=== PATIENT | female | born 1940 | race Caucasian/White ===

== ENCOUNTER 2020-04-15 01:20 | Outpatient (CLI) | payer MEDICARE, SELFPAY ==
[2020-04-15 19:35] LABS: SARS-CoV-2 RNA PCR Negative
== END 2020-04-15 01:21 | disposition home or self-care (01) ==
LOC: ANHCOVIDDT 01:20
PROVIDERS: PCP Family Medicine; Visit Provider Internal Medicine Gastroenterology
DX: Z01.812 Encounter for preprocedural laboratory examination (principal); Z11.59 Encounter for screening for other viral diseases
CPT/HCPCS: 87635; C9803; U0003

== ENCOUNTER 2020-04-17 01:34 | Day surgery (SDC) | payer MEDICARE, SELFPAY ==
[2020-04-10 10:05] VITALS: BMI 25.0
[2020-04-17 08:10] VITALS: BP 136/62; PULSE 75; RESP 18; TEMP 36.7; O2SAT 100; BMI 24.5
[2020-04-17 08:41] LABS: Prothrombin Time 12.9 Seconds (11.1-14.7)
--- NOTE | 2020-04-17 08:41 | PM.IMHP ---
H&P: HPI History of Present Illness Date/Time: 04/17/20 08:41 Chief complaint: Dysphagia,Neoplasm Screening Narrative: Reason for visit EGD and colonoscopy. This very pleasant lady sitting consultation request the primary. Impression: GERD with history dysphagia. Will evaluate for underlying Ring or stricture. Screening and surveillance colonoscopy. The patient has a history adenomatous colon polyps and diverticulosis coli. History: Very pleasant lady has dysphasia last 6 months. He does have a history underlying reflux disease well controlled on famotidine b.i.d.. She is here for EGD. Patient also has a history adenomatous colon polyps and diverticulosis coli. She is here for screening and surveillance colonoscopy. GI review systems otherwise unremarkable. Physical examination: General: very pleasant patient in no acute distress. HEENT: Head was normocephalic sclerae is clear mouth without masses neck was supple. Heart: Rate rhythm regular without S3 or S4. Lungs: CTA. Abdomen: Soft with no guarding or rigidity. Bowel sounds were active. Neurologic: Cranial nerves 2 through 12 intact. No focal defects. No clonus. Musculoskeletal system: Revealed no joint tenderness or swelling no muscle atrophy. Extremities: Reveal no significant edema. Skin: Warm and dry with normal turgor. Mental status: intact. Patient is alert and oriented. Review of Systems Review of Systems: All systems reviewed & are unremarkable except as noted in HPI and below PMFSH Past Medical History Medical History (Updated 04/17/20 @ 08:41 by Rupert Blanco DO) Adenomatous colon polyp Anxiety Atrial fibrillation and flutter Diverticula, colon DVT (deep venous thrombosis) GERD (gastroesophageal reflux disease) Pulmonary emboli TIA (transient ischemic attack) Vitamin D deficiency Surgical History Surgical History (Updated 04/17/20 @ 08:39 by Rupert Blanco DO) H/O colonoscopy History of knee replacement Social History Social History Smoking status: Never smoker Second hand tobacco smoke exposure: No Alcohol intake: never Substance use: never Substance use type: does not use Gender identity (if verbalized by the patient): Female Meds Home Medications and Allergies Home Medications Medication Instructions Recorded Confirmed Type tolterodine 4 mg capsule,extended 4 mg PO QAM 07/25/19 04/10/20 History release 24 hr ergocalciferol (vitamin D2) 1,250 50,000 unit PO 2XW cap 04/07/20 04/10/20 History mcg (50,000 unit) capsule cyclosporine [Restasis] 1 drp OPHTHALMIC (EYE) BID 04/10/20 04/10/20 History nifedipine 60 mg PO QAM 04/10/20 04/10/20 History paroxetine HCl 20 mg PO QAM 04/10/20 04/10/20 History warfarin [Coumadin] 2.5 mg PO QAM 04/10/20 04/17/20 History famotidine 40 mg tablet 40 mg PO BID #180 tablet 04/11/20 Rx Allergies Allergy/AdvReac Type Severity Reaction Status Date / Time No Known Allergies Allergy Verified 04/17/20 08:21 Vital Signs Vital Signs - 24 hr 04/17/20 08:10 Temperature 36.7 C Pulse Rate 75 Respiratory Rate 18 Blood Pressure 136/62 Pulse Oximetry 100
[2020-04-17 08:42] LABS: Partial Thromboplastin Time 24.8 SECONDS (22.3-36.8)
[2020-04-17] MEDS: LACTATED RINGERS 1,000 ML 150 ML IV CONT (08:51)
--- NOTE | 2020-04-17 09:15 | WPDANESEPPF ---
Anes - Initial Pre Proc Eval Procedure: Operation Date: 04/17/20 09:00 Proposed Procedures p Esophagogastroduodenoscopy&Screen Colon - Rupert Blanco DO Date/Time: 04/17/20 09:15 Surgeon: Rupert Blanco DO Pre Op Diagnosis: Dysphagia,Neoplasm Screening Patient Data Age: 79 Gender: F Height: 5 ft 3 in Weight: 62.7 kg Last Vital Signs Temp 98.1 F 04/17/20 08:10 Pulse 75 04/17/20 08:10 Resp 18 04/17/20 08:10 BP 136/62 04/17/20 08:10 Pulse Ox 100 04/17/20 08:10 Allergies Allergy/AdvReac Type Severity Reaction Status Date / Time No Known Allergies Allergy Verified 04/17/20 08:21 Home Medications Medication Instructions Recorded Confirmed Type tolterodine 4 mg capsule,extended 4 mg PO QAM 07/25/19 04/10/20 History release 24 hr ergocalciferol (vitamin D2) 1,250 50,000 unit PO 2XW cap 04/07/20 04/10/20 History mcg (50,000 unit) capsule cyclosporine [Restasis] 1 drp OPHTHALMIC (EYE) BID 04/10/20 04/10/20 History nifedipine 60 mg PO QAM 04/10/20 04/10/20 History paroxetine HCl 20 mg PO QAM 04/10/20 04/10/20 History warfarin [Coumadin] 2.5 mg PO QAM 04/10/20 04/17/20 History famotidine 40 mg tablet 40 mg PO BID #180 tablet 04/11/20 Rx Laboratory Tests 04/17/20 08:23 PT 12.9 Seconds Seconds (11.1-14.7) INR 1.0 APTT 24.8 SECONDS SECONDS (22.3-36.8) Patient hx anesthesia problems: none Family hx anesthesia problems: none PMFSH Past Medical History Medical History (Updated 04/17/20 @ 08:41 by Rupert Blanco DO) Adenomatous colon polyp Anxiety Atrial fibrillation and flutter Diverticula, colon DVT (deep venous thrombosis) GERD (gastroesophageal reflux disease) Pulmonary emboli TIA (transient ischemic attack) Vitamin D deficiency Surgical History Surgical History (Updated 04/17/20 @ 08:39 by Rupert T. Klucka, DO) H/O colonoscopy History of knee replacement Social History Social History Smoking status: Never smoker Second hand tobacco smoke exposure: No Alcohol intake: never Substance use: never Substance use type: does not use Gender identity (if verbalized by the patient): Female Anes - Eval Final PreProcedure Day of Procedure 04/17/20 09:15 Patient weight: normal Heart: regular rate and rhythm Lungs: clear to auscultation Airway: Mallampati scale class II Neurological: alert and oriented Last oral intake: >/= 8 hours ASA classification: III Emergent: no Anesthetic plan: proceed Anesthesia type and monitoring: general GIVS Informed Consent: The patient's anesthetic plan and its attendant risks and benefits were discussed with the patient/family/POA. Questions were solicited and answers provided to the satisfaction of the patient/family/POA.
[2020-04-17 10:08] VITALS: BP 114/62; PULSE 67; RESP 20; O2SAT 99
[2020-04-17 10:18] VITALS: BP 118/67; PULSE 66; RESP 20; O2SAT 100
[2020-04-17 10:28] VITALS: BP 120/55; PULSE 67; RESP 22; O2SAT 100
--- NOTE | 2020-04-17 10:56 | SUR.PHASEII ---
[address] AND [address] DR. SOSA THAT PATIENT CAN RESTART COUMADIN TODAY. INFORMED PATIENT AND HER THAT SHE CAN RESTART COUMADIN TODAY. NIKITA PRICE. 1055 REVIEWED DISCHARGE INSTRUCTIONS, INCLUDING FUTHUR TESTING AND PROCEDURES ORDERED BY DR. SOSA. NIKITA PRICE
== END 2020-04-17 10:58 | disposition home or self-care (01) ==
PROVIDERS: PCP Family Medicine; Visit Provider Internal Medicine Gastroenterology
PROC: 0DJ08ZZ Inspection of Upper Intestinal Tract, Via Natural or Artificial Opening Endoscopic (ICD-10-PCS; CPT 43235; principal; 2020-04-17 09:00)
DX: Z12.11 Encounter for screening for malignant neoplasm of colon (principal); K57.30 Diverticulosis of large intestine without perforation or abscess without bleeding; K64.8 Other hemorrhoids; Z86.010 Personal history of colon polyps; K21.0 Gastro-esophageal reflux disease with esophagitis; R13.10 Dysphagia, unspecified; K44.9 Diaphragmatic hernia without obstruction or gangrene; K31.7 Polyp of stomach and duodenum; I48.91 Unspecified atrial fibrillation; I48.92 Unspecified atrial flutter; E55.9 Vitamin D deficiency, unspecified; F41.9 Anxiety disorder, unspecified; Z79.01 Long term (current) use of anticoagulants; Z86.73 Personal history of transient ischemic attack (TIA), and cerebral infarction without residual deficits; Z86.718 Personal history of other venous thrombosis and embolism
CPT/HCPCS: 43239; G0105; 36415; 85610; 85730; 87081; 88305; J2001; J2704; J7120

== ENCOUNTER 2020-06-04 06:46 | Outpatient (CLI) | payer MEDICARE, SELFPAY ==
--- NOTE | ~2020-06-04 | CT_ITS ---
EXAMINATION: CT chest abdomen pelvis w con DATE: 06/04/2020 09:03 CDT INDICATION: Shortness of breath. Abdomen pain. TECHNIQUE: Computed tomography (CT) of the chest, abdomen, and pelvis was performed with 100 cc Omnip aque 350 intravenous contrast. The dose-length product was 427.39 mGy-cm. Automated exposure control and iterative reconstruction technique were employed. COMPARISON: None FINDINGS: CHEST CT: There is a large hiatal hernia with gastric volvulus pattern. No definite obstruction. No thoracic ly mphadenopathy. No significant pleural or pericardial effusion. Heart size is normal. There is linear scarring/atelectasis right upper lobe. There is dependent atelectasis. No focal consolidation. No pne umothorax. No suspicious pulmonary nodules or masses. ABDOMEN/PELVIS CT: The liver, pancreas, adrenal glands are unremarkable. There are calcified granulomas of the spleen. T here is bilateral areas of focal cortical thinning of the kidneys. No hydronephrosis or mass identifi ed. There is atherosclerosis of the aorta without aneurysm. Nonobstructive bowel gas pattern. Colonic diverticulosis. Normal appendix. No lymphadenopathy. No free air or free fluid. Gallbladder is prese nt. There is mild thoracic and lumbar spondylosis. No acute osseous abnormality. Mild scoliosis. IMPRESSION: 1. Large hiatal hernia with gastric volvulus. No obstruction. Reviewed, dictated and finalized at location A.
--- NOTE | ~2020-06-04 | XR_ITS ---
EXAMINATION: XR UGIAC w barium swallow DATE: 06/04/2020 08:22 INDICATION: Diaphragmatic hernia with obstruction without gangrene. TECHNIQUE: The patient drank thick barium, gas-producing crystals, and thin barium. Fluoroscopy of th e esophagus, stomach, and proximal small bowel was performed. Fluoroscopy exposure time was 0.8 minut es. The total number of images was 39. COMPARISON: None. FINDINGS: There is no mass or stricture of the esophagus. Esophageal motility is normal. There is a l arge sliding hiatal hernia. The gastroesophageal junction is 8.5 cm above the diaphragm. There is a d iverticulum of the second portion of the duodenum. IMPRESSION: 1. Large sliding hiatal hernia. Reviewed, dictated and finalized at location A.
[2020-06-04 07:24] LABS: Estimated Glomerular Filt Rate > 60
== END 2020-06-04 06:47 | disposition home or self-care (01) ==
PROVIDERS: PCP Family Medicine; Visit Provider Internal Medicine Gastroenterology
DX: R06.02 Shortness of breath (principal); K44.9 Diaphragmatic hernia without obstruction or gangrene
CPT/HCPCS: 71260; 74177; 74246; Q9967

== ENCOUNTER → 2020-06-10 12:00 | Outpatient (CLI) | payer MEDICARE, SELFPAY ==
--- NOTE | ~2020-06-10 | DEXA_ITS ---
Bone Density Report Name: Esther Rodas Age: 80 Sex: Female Ethnicity: White Date of : 1940 Indication: osteopenia; height loss; postmenopausal Referring Provider: CARLINE GALARZA Study: Bone densitometry was performed. Exam Date: June 10, 2020 Accession number: [id number] Bone Density: Region BMD T-score Z-score Classification AP Spine (L1-L4) 0.980 -0.6 2.0 Normal Femoral Neck (Left) 0.720 -1.2 1.1 Osteopenia Total Hip (Left) 0.814 -1.0 0.9 Normal Femoral Neck (Right) 0.688 -1.5 0.8 Osteopenia Total Hip (Right) 0.868 -0.6 1.3 Normal Total Hip Mean 0.841 -0.8 1.1 Normal World Health Organization criteria for BMD impression classify patients as: Normal (T-score at or above -1.0), Osteopenia (T-score between -1.0 and -2.5), or Osteoporosis (T-score at or below -2.5). 10-year Fracture Risk(1): Major Osteoporotic Fracture 13% Hip Fracture 2.7% Reported Risk Factors: [place] (), Neck BMD=0.688, BMI=24.9 (1) FRAX(R) Version 3.08. Fracture probability calculated for an untreated patient. Fracture probability may be lower if the patient has received treatment. Previous Exams: Region Exam Age BMD T-score BMD Change BMD Change Date g/cm2 vs Baseline vs Previous AP Spine(L1-L4) 06/10/2020 80 0.980 -0.6 -0.001 -0.005 11/09/2017 77 0.985 -0.6 0.004 0.053* 09/29/2015 75 0.932 -1.0 -0.049* -0.002 08/21/2013 73 0.934 -1.0 -0.047* -0.008 07/14/2011 71 0.942 -1.0 -0.039* -0.005 06/26/2009 69 0.947 -0.9 -0.034* -0.034* 03/25/2006 65 0.981 -0.6 Total Hip(Left) 06/10/2020 80 0.814 -1.0 -0.130* 0.047* 11/09/2017 77 0.767 -1.4 -0.177* -0.086* 09/29/2015 75 0.853 -0.7 -0.091* 0.083* 08/21/2013 73 0.770 -1.4 -0.175* 0.004 07/14/2011 71 0.765 -1.4 -0.179* -0.134* 06/26/2009 69 0.900 -0.3 -0.045* -0.045* 03/25/2006 65 0.944 0.0 Total Hip(Right) 06/10/2020 80 0.868 -0.6 -0.075* 0.071* 11/09/2017 77 0.796 -1.2 -0.146* -0.105* 09/29/2015 75 0.901 -0.3 -0.041* 0.068* 08/21/2013 73 0.833 -0.9 -0.110* -0.019 07/14/2011 71 0.852 -0.7 -0.091* -0.103* 06/26/2009 69 0.955 0.1 0.013 0.013 03/25/2006 65 0.943 0.0 *Denotes significance at 95% confidenc
== END ==
PROVIDERS: PCP Family Medicine; Visit Provider Obstetrics & Gynecology Gynecology
DX: Z78.0 Asymptomatic menopausal state (principal); M85.852 Other specified disorders of bone density and structure, left thigh; M85.851 Other specified disorders of bone density and structure, right thigh
CPT/HCPCS: 77080

== ENCOUNTER → 2020-08-04 13:18 | Outpatient (CLI) | payer MEDICARE, SELFPAY ==
--- NOTE | ~2020-08-04 | MM_ITS ---
EXAMINATION: MM screening kemar BI w nhan HISTORY: Screening mammogram TECHNIQUE: Craniocaudal and mediolateral oblique 3-D tomosynthesis images were obtained and synthetic 2-D images were generated. CAD analysis was submitted and interpreted. COMPARISON: 02/01/2019, 11/09/2017, 10/06/2016 bilateral digital screening mammogram examinations BREAST PARENCHYMAL COMPOSITION: The breasts are almost entirely fatty. FINDINGS: There is no evidence of suspicious mass, calcification, or architectural distortion to sugg est malignancy in either breast. There has been no suspicious interval change. IMPRESSION: 1. No mammographic evidence of malignancy. 2. Recommend routine screening mammography in one year. BI-RADS Category 1: Negative Reviewed, dictated and finalized at location A. SCORER
== END ==
PROVIDERS: PCP Family Medicine; Visit Provider Obstetrics & Gynecology Gynecology
DX: Z12.31 Encounter for screening mammogram for malignant neoplasm of breast (principal)
CPT/HCPCS: 77063; 77067

== ENCOUNTER → 2021-05-20 01:34 | Outpatient (CLI) | payer MEDICARE, SELFPAY ==
[2021-05-20 20:24] LABS: SARS-CoV-2 RNA PCR Positive
== END ==
PROVIDERS: PCP Family Medicine; Visit Provider Family Medicine
DX: U07.1 COVID-19 (principal); R43.2 Parageusia
CPT/HCPCS: C9803; U0003; U0005

== ENCOUNTER → 2021-09-18 15:17 | Outpatient (CLI) | payer MEDICARE, SELFPAY ==
--- NOTE | ~2021-09-18 | MM_ITS ---
EXAMINATION: MM screening kemar BI w nhan HISTORY: Screening TECHNIQUE: Craniocaudal and mediolateral oblique 3-D tomosynthesis images were obtained and synthetic 2-D images were generated. CAD analysis was submitted and interpreted. COMPARISON: Comparison to multiple prior studies sequentially, with oldest reviewed study dated 09/29. BREAST PARENCHYMAL COMPOSITION: There are scattered areas of fibroglandular density. FINDINGS: There is no evidence of suspicious mass, calcification, or architectural distortion to sugg est malignancy in either breast. There has been no suspicious interval change. IMPRESSION: 1. No mammographic evidence of malignancy. 2. Recommend routine screening mammography in one year. BI-RADS Category 1: Negative Reviewed, dictated and finalized at location A. PHONE AD TAKER
== END ==
PROVIDERS: Visit Provider Obstetrics & Gynecology Gynecology
DX: Z12.31 Encounter for screening mammogram for malignant neoplasm of breast (principal)
CPT/HCPCS: 77063; 77067

== ENCOUNTER → 2022-11-09 13:18 | Outpatient (CLI) | payer MEDICARE, SELFPAY ==
--- NOTE | ~2022-11-09 | MM_ITS ---
EXAMINATION: MM screening kemar BI w nhan HISTORY: Screening mammogram TECHNIQUE: Craniocaudal and mediolateral oblique 3-D tomosynthesis images were obtained and synthetic 2-D images were generated. CAD analysis was submitted and interpreted. COMPARISON: 09/18/2021, 08/04/2020, 02/01/2019 bilateral screening mammogram examinations BREAST PARENCHYMAL COMPOSITION: There are scattered areas of fibroglandular density... FINDINGS: There is no evidence of suspicious mass, calcification, or architectural distortion to sugg est malignancy in either breast. There has been no suspicious interval change. IMPRESSION: 1. No mammographic evidence of malignancy. 2. Recommend routine screening mammography in one year. BI-RADS Category 1: Negative Reviewed, dictated and finalized at location A. CHARGE CARD CLERK
== END ==
PROVIDERS: PCP Family Medicine; Visit Provider Obstetrics & Gynecology Gynecology
DX: Z12.31 Encounter for screening mammogram for malignant neoplasm of breast (principal)
CPT/HCPCS: 77063; 77067

== ENCOUNTER → 2022-11-12 12:23 | Outpatient (CLI) | payer MEDICARE, SELFPAY ==
--- NOTE | ~2022-11-12 | DEXA_ITS ---
Bone Density Report Name: KIARA RAGSDALE Age: 82 Sex: Female Ethnicity: White Date of : 1940 Indication: postmenopausal; screening for osteoporosis; height loss; Referring Provider: CARLINE GALARZA Study: Bone densitometry was performed. Exam Date: November 12, 2022 Accession number: [id number] Bone Density: Region BMD T-score Z-score Classification AP Spine (L1-L4) 0.975 -0.7 2.1 Normal Femoral Neck (Left) 0.695 -1.4 0.9 Osteopenia Total Hip (Left) 0.795 -1.2 0.9 Osteopenia Femoral Neck (Right) 0.660 -1.7 0.6 Osteopenia Total Hip (Right) 0.861 -0.7 1.4 Normal Total Hip Mean 0.828 -1.0 1.2 Normal World Health Organization criteria for BMD impression classify patients as: Normal (T-score at or above -1.0), Osteopenia (T-score between -1.0 and -2.5), or Osteoporosis (T-score at or below -2.5). 10-year Fracture Risk(1): Major Osteoporotic Fracture 14% Hip Fracture 3.6% Reported Risk Factors: [place] (), Neck BMD=0.660, BMI=24.4 (1) FRAX(R) Version 3.08. Fracture probability calculated for an untreated patient. Fracture probability may be lower if the patient has received treatment. Previous Exams: Region Exam Age BMD T-score BMD Change BMD Change Date g/cm2 vs Baseline vs Previous AP Spine(L1-L4) 11/12/2022 82 0.975 -0.7 -0.005 -0.004 06/10/2020 80 0.980 -0.6 -0.001 -0.005 11/09/2017 77 0.985 -0.6 0.004 0.053* 09/29/2015 75 0.932 -1.0 -0.049* -0.002 08/21/2013 73 0.934 -1.0 -0.047* -0.008 07/14/2011 71 0.942 -1.0 -0.039* -0.005 06/26/2009 69 0.947 -0.9 -0.034* -0.034* 03/25/2006 65 0.981 -0.6 Total Hip(Left) 11/12/2022 82 0.795 -1.2 -0.149* -0.019 06/10/2020 80 0.814 -1.0 -0.130* 0.047* 11/09/2017 77 0.767 -1.4 -0.177* -0.086* 09/29/2015 75 0.853 -0.7 -0.091* 0.083* 08/21/2013 73 0.770 -1.4 -0.175* 0.004 07/14/2011 71 0.765 -1.4 -0.179* -0.134* 06/26/2009 69 0.900 -0.3 -0.045* -0.045* 03/25/2006 65 0.944 0.0 Total Hip(Right) 11/12/2022 82 0.861 -0.7 -0.081* -0.006 06/10/2020 80 0.868 -0.6 -0.075* 0.071* 11/09/2017 77 0.796 -1.2 -0.146* -0.105* 09/29/2015 75 0.901 -0.3 -0.041* 0.068* 08/21/2013 73 0.833 -0.9 -0.110* -0.019 07/14/2011 71 0.852 -0.7 -0.091* -0.103* 06/26/2009
== END ==
PROVIDERS: PCP Family Medicine; Visit Provider Obstetrics & Gynecology Gynecology
DX: Z78.0 Asymptomatic menopausal state (principal); M85.89 Other specified disorders of bone density and structure, multiple sites
CPT/HCPCS: 77080

== ENCOUNTER 2023-01-27 15:31 | Outpatient (CLI) | payer MEDICARE, SELFPAY ==
--- NOTE | ~2023-01-27 | XR_ITS ---
EXAMINATION: XR abdomen obstructive series DATE: 01/27/2023 15:59 INDICATION: Constipation TECHNIQUE: Supine and upright views of the abdomen. FINDINGS: No prior studies for comparison. The visualized lung parenchyma is normal.. There is a nonobstructive bowel gas pattern. Gas and stool are seen throughout the colon to the level of the rectum. There is no free air. Moderate colonic fe viry loading. IMPRESSION: 1. No acute abdominal abnormality. Reviewed, dictated and finalized at location L.
== END 2023-01-27 15:32 | disposition home or self-care (01) ==
LOC: ANHIMG 15:33
PROVIDERS: PCP Family Medicine; Visit Provider Family Medicine
DX: K59.00 Constipation, unspecified (principal)
CPT/HCPCS: 74019

== ENCOUNTER 2023-06-30 12:54 | Emergency (ER) | payer MEDICARE, SELFPAY ==
[2023-06-30 13:13] VITALS: BP 129/67; PULSE 91; RESP 16; TEMP 37.3; O2SAT 98
--- NOTE | 2023-06-30 13:36 | ED.GENADULT ---
HPI - General Adult General Chief complaint: Extremity Problem,Nontraumatic Stated complaint: Body pain Time Seen by Provider: 06/30/23 13:19 Source: patient, family () and RN notes reviewed Mode of arrival: ambulatory Limitations: no limitations History of Present Illness HPI narrative: Patient presents today complaining of right-sided neck pain and right knee pain times 3-4 days. She is also reporting all over body pain the last couple of days. Denies injury or trauma. She has tried no medication for symptoms prior to arrival. She has been walking with a walker for due to her knee pain she has an appointment with her orthopedist in 4 days for her knee. Related Data Home Medications Medication Instructions Recorded Confirmed tolterodine 4 mg capsule,extended 4 mg PO QAM 07/25/19 06/30/23 release 24 hr acetaminophen 500 mg tablet 500 mg PO Q4H PRN Pain (Scale 08/27/20 06/30/23 Score 4-6) calcium pantothenate 500 mg tablet 500 mg PO BID 08/27/20 06/30/23 cyclosporine 0.05 % eye drops 1 drp ophthalmic (eye) Q12H 08/27/20 06/30/23 (Restasis MultiDose) ergocalciferol (vitamin D2) 1,250 50,000 unit PO .2X Monthly 08/31/21 06/30/23 mcg (50,000 unit) capsule donepezil 5 mg tablet 5 mg PO HS 06/30/23 06/30/23 Allergies Allergy/AdvReac Type Severity Reaction Status Date / Time No Known Allergies Allergy Verified 06/30/23 13:08 Review of Systems Review of Systems: CONSTITUTIONAL: Denies fever, chills, or sweats.+ body aches EYES: Denies visual changes, redness, or discharge. ENT: Denies rhinorrhea, congestion, sore throat, or otalgia. CARDIOVASCULAR: Denies chest pain, palpitations, or edema. RESPIRATORY: Denies cough or dyspnea. GASTROINTESTINAL: Denies abdominal pain, nausea, vomiting, or diarrhea. GENITOURINARY: Denies dysuria or hematuria. SKIN: Denies rash, itching, or wounds. MUSCULOSKELETAL: Denies back pain. + right knee pain, right neck pain NEUROLOGIC: Denies headache, numbness, tingling, or weakness. PSYCH: Denies depression or anxiety. [facility] Past Medical History Medical History Adenomatous colon polyp Anxiety Diverticula, colon DVT (deep venous thrombosis) GERD (gastroesophageal reflux disease) Heart murmur Pulmonary emboli TIA (transient ischemic attack) Vitamin D deficiency Surgical History Surgical History H/O colonoscopy History of knee replacement Family History Family History Father Diabetes mellitus Hypertension Family history of cardiovascular disease Family history of coronary artery disease Mother Hypertension Family history of arthritis Family history of Alzheimer's disease Social History Social History Smoking status: Never smoker Second hand tobacco smoke exposure: No Alcohol intake: never Substance use: never Substance use type: does not use Lack of Transportation: No Lack of Food: Never True Current Housing: I Have Housing Concerned About Future Housing: No Difficulty Paying Gas/Electric Bills: No Difficulty Paying for Meds: No Currently Unemployed: No Education: Bachelor's Degree Difficulty w/ Childcare or Family Care: No Living arrangements: with family Occupation/Education: retired Gender identity (if verbalized by the patient): Female Comments At time of signature, I have reviewed and agree with nursing past medical, surgical, social and family history unless otherwise noted. Please see nursing chart for further information. There is no relevant family history pertinent to the presenting complaint Exam Narrative: GENERAL: Well-appearing, well-nourished, and in no acute distress. HEAD: Normocephalic, atraumatic. EYES: EOMI. No redness or drainage. Conjunctiva
--- NOTE | 2023-06-30 15:29 | PC.NURSE ---
1510 Patient has been unable to provide urine specimen despite drinking 3 cups of water and sitting on the toilet for 15 minutes x2. Provider spoke to patient and her and they will be discharged.
== END 2023-06-30 15:17 | disposition home or self-care (01) ==
PROVIDERS: Emergency Provider Nurse Practitioner; PCP Family Medicine
DX: R52 Pain, unspecified (principal); S16.1XXA Strain of muscle, fascia and tendon at neck level, initial encounter; X58.XXXA Exposure to other specified factors, initial encounter; M25.561 Pain in right knee; K21.9 Gastro-esophageal reflux disease without esophagitis; R01.1 Cardiac murmur, unspecified; E55.9 Vitamin D deficiency, unspecified; Z86.718 Personal history of other venous thrombosis and embolism; Z86.711 Personal history of pulmonary embolism; Z86.73 Personal history of transient ischemic attack (TIA), and cerebral infarction without residual deficits
CPT/HCPCS: 99212; G0463

== ENCOUNTER 2023-07-18 17:02 | Inpatient (IN) | payer MEDICARE, SELFPAY ==
[2023-07-18] VITALS (12 sets, daily range): BP systolic 133–148; BP diastolic 61–67; PULSE 78–90; RESP 14–23; TEMP 36.6; O2SAT 95–97
--- NOTE | ~2023-07-18 | CT_ITS ---
EXAMINATION: CT brain wo con DATE: 07/18/2023 17:32 INDICATION: fall on Xarelto . TECHNIQUE: Computed tomography (CT) of the head was performed without intravenous contrast. The mA wa s adjusted according to patient size. Iterative reconstruction technique was employed. The dose-lengt h product was 605.33 mGy-cm. COMPARISON: 04/01/2013. FINDINGS: No acute intracranial hemorrhage or extra-axial fluid collection. No hydrocephalus, mass, or herniation. No acute ischemic infarct. Unremarkable dural venous sinus attenuation. No acute osseous abnormality. The aerated spaces are clear. Moderate atrophy and chronic white matter change. Atherosclerotic intracranial calcification. Bilater al lens replacements. Old bilateral basal ganglia lacunar infarcts. Encephalomalacia in the left diomedes etal-occipital region, left insula and left posterior frontal lobe. IMPRESSION: No acute intracranial process. Reviewed, dictated and finalized at location K. [employer]
--- NOTE | ~2023-07-18 | XR_ITS ---
EXAM: XR hip LT 2V w AP pelvis DATE: 07/18/2023 17:36 HISTORY: fall, pain at proximal Lt femur . COMPARISON: None available. FINDINGS: Decreased mineralization. Degenerative changes in the lumbar spine. Acute appearing, moder ately displaced fractures of the superior and inferior left pubic rami, at their junctions with the p ubic bone, with likely fracture extension into the pubic bone on the left. No other fracture identifi ed. No dislocation. IMPRESSION: Moderately displaced fractures of the left obturator ring, with extension into the left p ubic bone. Reviewed, dictated and finalized at location K. N[facility] INTERN IMPRESSION: Moderately displaced fractures of the left obturator ring, with ext ension into the left pubic bone.
--- NOTE | 2023-07-18 18:22 | ED.FALL ---
HPI - Fall General Chief Complaint: Fall Stated Complaint: FALL Time Seen by Provider: 07/18/23 17:05 Source: patient Mode of arrival: EMS Limitations: no limitations History of Present Illness HPI Narrative: This is an 83 year old who states she was backing up from one room to another and she lost her balance and fell. No loss of consciousness but she is on Xarelto. She denies hitting her head of having neck pain. Complaint is pain at her left hip. No paresthesias. Pain 4 or 5 out of 10 in severity. Denies alcohol today. Denies syncope. Related Data Home Medications Medication Instructions Recorded Confirmed acetaminophen 500 mg tablet 500 mg PO Q4H PRN Pain (Scale 08/27/20 07/19/23 Score 4-6) ergocalciferol (vitamin D2) 1,250 50,000 unit PO .2X Monthly 08/31/21 07/19/23 mcg (50,000 unit) capsule nifedipine 60 mg tablet,extended 60 mg PO DAILY 07/19/23 07/19/23 release paroxetine HCl 20 mg tablet 20 mg PO DAILY 07/19/23 07/19/23 pravastatin 20 mg tablet 20 mg PO DAILY 07/19/23 07/19/23 rivaroxaban 20 mg tablet (Xarelto) 20 mg PO HS 07/19/23 07/19/23 rivastigmine 9.5 mg/24 hour 9.5 mg transdermal DAILY 07/19/23 07/19/23 transdermal patch vibegron 75 mg tablet (Gemtesa) 75 mg PO DAILY 07/19/23 07/19/23 Allergies Allergy/AdvReac Type Severity Reaction Status Date / Time No Known Allergies Allergy Verified 07/19/23 03:04 [facility] Past Medical History Medical History Adenomatous colon polyp Anxiety Diverticula, colon DVT (deep venous thrombosis) GERD (gastroesophageal reflux disease) Heart murmur Pulmonary emboli TIA (transient ischemic attack) Vitamin D deficiency Surgical History Surgical History H/O colonoscopy History of knee replacement Family History Family History Father Diabetes mellitus Hypertension Family history of cardiovascular disease Family history of coronary artery disease Mother Hypertension Family history of arthritis Family history of Alzheimer's disease Social History Social History Smoking status: Never smoker Second hand tobacco smoke exposure: No Alcohol intake: never Substance use: never Substance use type: does not use Lack of Transportation: No Lack of Food: Never True Current Housing: I Have Housing Concerned About Future Housing: No Difficulty Paying Gas/Electric Bills: No Difficulty Paying for Meds: No Currently Unemployed: No Education: Bachelor's Degree Difficulty w/ Childcare or Family Care: No Living arrangements: with family Occupation/Education: retired Gender identity (if verbalized by the patient): Female Spiritual care concerns: No Exam Const: General: healthy appearing, no acute distress and alert; No confusion, diaphoretic or ill appearing Nutritional Appearance: well nourished Orientation/consciousness: patient oriented x3 Limitations: no limitations HENMT: Head: normal to inspection, no contusions, no hematomas and no lacerations Ears: external ears normal Face and sinus: normal facial exam Neck: Neck: normal visual inspection Other: No TTP of cervical spine which are midline and without bony step offs Chest: Chest palpation & inspection: normal inspection of the chest Resp: Effort & Inspection: normal respiratory effort, not labored, no retractions, not tachypneic and no use of accessory muscles Cardio: Rate: regular rate, not bradycardic and not tachycardic GI: Inspection: non-distended Other: soft, nontender; no guarding Back/Spine/Pelvis: Cervical Spine: No collar present Skin: General skin exam: normal color and no jaundice Wounds: no wounds Neuro: General: patient oriented x3 Speech: normal speech Other: Sensation intact to tgross touc
[2023-07-18] MEDS: MORPHINE SULFATE (*CRX) 4 MG/ML INJ IV PUSH (18:30)
[2023-07-18 18:45] LABS: Basophils Absolute Auto 0.1 K/mm3 (0.0-0.1); Basophils Percent Auto 0.5 % (0.2-1.2); Eosinophils Absolute Auto 0.1 K/mm3 (0-0.3); Eosinophils Percent Auto 0.8 % (0-4.4); Hematocrit 37.1 % (37.0-47.0); Hemoglobin 12.1 g/dL (12.0-15.0); Immature Granulocyte Absolute 0.11 K/mm3 (0.00-0.031); Immature Granulocyte Percent A 1.1 % (0-0.5); Lymphocytes Absolute Auto 0.88 K/mm3 (0.9-3.2); Lymphocytes Percent Auto 8.4 % (18.3-44.2); Mean Corpuscular HGB Conc 32.6 g/dl (32-36); Mean Corpuscular Hemoglobin 32.8 pg (26-34); Mean Corpuscular Volume 100.5 fl (80-100); Mean Platelet Volume 10.5 fl (7.4-10.4); Monocytes Absolute Auto 0.8 K/mm3 (0.1-0.6); Monocytes Percent Auto 7.5 % (2.6-8.5); Neutrophils Absolute Auto 8.6 K/mm3 (1.3-6.7); Neutrophils Percent Auto 81.7 % (45.5-73.1); Platelet Count Result 270 k/mm3 (150-375); Red Blood Count 3.69 M/mm3 (4.2-5.4); Red Cell Distribution Width 11.9 % (11.5-14.5); White Blood Count 10.5 K/mm3 (4.5-10.0)
[2023-07-18 18:49] LABS: Anion Gap 6 mmol/L (8-16); Blood Urea Nitrogen 22 mg/dL (7-17); Calcium 9.4 mg/dL (8.4-10.2); Carbon Dioxide 28 mmol/L (22-30); Chloride 102 mmol/L (98-107); Estimated Glomerular Filt Rate > 60; Glucose 105 mg/dL (65-110); Sodium 136 mmol/L (137-145)
[2023-07-18 18:51] LABS: INR 1.2; Prothrombin Time 15.6 Seconds (11.1-14.7)
[2023-07-18 18:53] LABS: Partial Thromboplastin Time 33.7 SECONDS (22.3-36.8)
--- NOTE | 2023-07-18 19:15 | PC.NURSE ---
Assumed care of pt. at this time. Report from DEE Negro
--- NOTE | 2023-07-18 19:38 | PM.IMHP ---
H&P: HPI History of Present Illness Date/Time: 07/18/23 19:38 Chief Complaint: Fall Narrative: This is an 83-year-old female with past medical history significant for anxiety, the ventrum boluses, GERD, pulmonary emboli, transitory ischemic attack. Patient presented to the emergency room today after sustaining a ground level mechanical fall when she tripped at her house falling over unable to bear weight on her left leg. Patient denies any loss of consciousness. Patient has been her usual state of health. In emergency room patient was found to have a hip fracture. Patient has been admitted for further evaluation management and treatment. EXAMINATION: CT brain wo con DATE: 07/18/2023 17:32 INDICATION: fall on Xarelto . TECHNIQUE: Computed tomography (CT) of the head was performed without intravenous contrast. The mA was adjusted according to patient size. Iterative reconstruction technique was employed. The dose-length product was 605.33 mGy-cm. COMPARISON: 04/01/2013. FINDINGS: No acute intracranial hemorrhage or extra-axial fluid collection. No hydrocephalus, mass, or herniation. No acute ischemic infarct. Unremarkable dural venous sinus attenuation. No acute osseous abnormality. The? aerated spaces are clear. Moderate atrophy and chronic white matter change. Atherosclerotic intracranial calcification. Bilateral lens replacements. Old bilateral basal ganglia lacunar infarcts. Encephalomalacia in the left parietal-occipital region, left insula and left posterior frontal lobe. IMPRESSION:? No acute intracranial process. EXAM:? XR hip LT 2V w AP pelvis DATE: 07/18/2023 17:36 HISTORY: fall, pain at proximal Lt femur . COMPARISON:? None available. FINDINGS:? Decreased mineralization. Degenerative changes in the lumbar spine. Acute appearing, moderately displaced fractures of the superior and inferior left pubic rami, at their junctions with the pubic bone, with likely fracture extension into the pubic bone on the left. No other fracture identified. No dislocation. IMPRESSION: Moderately displaced fractures of the left obturator ring, with extension into the left pubic bone. Review of Systems Review of Systems: Fall pain upon bearing weight on left leg unable to ambulate Constitutional: Constitutional: Denies chills, Denies fever(s), Denies malaise, Denies night sweats and Denies weakness Eyes: Eyes: Denies change in vision ENT: Denies dysphagia, Denies vertigo, Denies dizziness and Denies odynophagia Cardiovascular: Cardiovascular: Denies chest pain, Denies leg edema, Denies radiating jaw, neck or arm pain and Denies palpitations Respiratory: Respiratory: Denies cough and Denies dyspnea Gastrointestinal: Gastrointestinal: Denies abdominal pain, Denies dyspepsia, Denies heartburn, Denies diarrhea, Denies loose stools, Denies nausea and Denies vomiting Genitourinary: Genitourinary: Denies dysuria and Denies flank pain Musculoskeletal: Musculoskeletal: Reports deformity, Reports arthralgias (Left hip) and Reports limited range of motion Integumentary/Breasts: Skin/Breast: Denies rash Neurologic: Denies vertigo, Denies dizziness, Denies focal weakness and Denies Sensory deficit (Neuro) Psychiatric: Psychiatric: Reports no additional psychiatric complaints and Reports as per HPI Endocrine: Endocrine: Denies cold intolerance, Denies flushing, Denies heat intolerance, Denies polyphagia, Denies polydipsia and Denies palpitations Hematologic/Lymphatic: Hematologic/Lymphatic: Reports no additional hematologic/lymphatic complaints and Reports as per HPI Allergic/Immunologic: Allergic/Immunologic: Reports no additional allergic/immunologic complaints and Reports as per HPI PMFSH Past Medical History Medical History Adenomatous colon polyp Anxiety Diverticula, colon DVT (deep venous thrombosis) GERD (gastroesophageal refl
[2023-07-19 02:54] VITALS: BMI 25.0
--- NOTE | 2023-07-19 02:57 | ADMGEN ---
This patient, Esther Rodas, was admitted to [facility] Surg Room 331-02. Patient/family oriented to hospital policies and general routines including ID bracelet, bed and alarms, visiting hours, pain management, procedures, bathroom and other care routines, personal items, smoking policy, room service/diet, and visiting hours. Information on how to activate the Rapid Response Team has been discussed. Patient/Family are encouraged to report perceived risks to care and to ask questions if they do not understand what they are told or what they should do.
[2023-07-19] MEDS: ACETAMINOPHEN 500 MG TABLET PO (03:04)
[2023-07-19 05:35] VITALS: BP 156/69; PULSE 72; RESP 20; TEMP 35.8; O2SAT 97
[2023-07-19] MEDS: HYDROmorphone HCL INJ (*CRX) 1 MG/ML SYR IV PUSH ×2 (06:42→16:00)
--- NOTE | 2023-07-19 08:46 | PM.CNOR ---
Assessment and Plan Assessment and plan (1) Pelvic fracture: Qualifiers: Encounter type: initial encounter Fracture type: closed Laterality: left Pelvic bone location: pubis Sublocation of pubis: unspecified portion of pubis Qualified Code(s): S32.502A - Unspecified fracture of left pubis, initial encounter for closed fracture Code(s): S32.9XXA - Fracture of unspecified parts of lumbosacral spine and pelvis, initial encounter for closed fracture Status: Acute Assessment and Plan: History, exam radiographs reviewed with the patient. Radiographs of the left hip and pelvis reveal moderately displaced fractures of the left obturator ring, with extension into the left pubic bone. The fracture type and injury as well as radiographs discussed with the patient and family. Nonoperative treatment options reviewed. The patient elects for non operative treatment. Risk of nonunion, malunion or late displacement discussed. Stiffness, pain and possible dysfunction of the joint discussed. Fracture precautions and activity restrictions reviewed. The patient verbalizes understanding. PT/OT. WBAT. Walker. Fall Precautions. Okay to resume Xarelto. SCDs. Incentive Spirometry. Pain control. Ice. Dispo: SNF vs. [facility] pending medical clearance (2) Fall: Code(s): W19.XXXA - Unspecified fall, initial encounter Status: Acute (3) PAF (paroxysmal atrial fibrillation): Code(s): I48.0 - Paroxysmal atrial fibrillation Status: Acute (4) History of pulmonary embolism: Code(s): Z86.711 - Personal history of pulmonary embolism Status: Acute History of Present Illness HPI Consult date: 07/19/23 Chief complaint: L. Obturator Ring Fracture with Extension into Pub Narrative: 83-year-old female presents to the emergency room after a fall at home. Per the patient and medical records, she was backing up from to another when she lost her balance fell. She denies loss of consciousness or hitting her head. Complaining of pain in the left hip. Radiographs in the emergency room revealed moderately displaced fractures of the left obturator ring, with extension into the left pubic bone. patient was admitted for further evaluation, pain control and orthopedic consult. Patient was previously seen in the emergency room at the end of June with generalized weakness and body aches. She had difficulty providing a urine sample at that time. It does appear that she was successful several days later. Per patient, she has been in her usual state of health in the last 1 week. She denies recent weakness or feeling ill as she was earlier. Review of Systems Review of Systems: All systems reviewed & are unremarkable except as noted in HPI and below PMFSH Past Medical History Medical History (Updated 07/19/23 @ 12:53 by IDA Mendoza) Adenomatous colon polyp Anxiety Diverticula, colon DVT (deep venous thrombosis) GERD (gastroesophageal reflux disease) Heart murmur Pelvic fracture Pulmonary emboli TIA (transient ischemic attack) Vitamin D deficiency Surgical History Surgical History H/O colonoscopy History of knee replacement Family History Family History Father Diabetes mellitus Hypertension Family history of cardiovascular disease Family history of coronary artery disease Mother Hypertension Family history of arthritis Family history of Alzheimer's disease Social History Social History Smoking status: Never smoker Second hand tobacco smoke exposure: No Alcohol intake: never Substance use: never Substance use type: does not use Lack of Transportation: No Lack of Food: Never True Current Housing: I Have Housing Concerned About Future Housing: No Difficulty Paying Gas/Electric Bills: No Difficulty Payi
[2023-07-19] MEDS: NIFEdipine 30 MG TAB.ER.24 60 MG PO (10:22)
[2023-07-19] MEDS: PRAVASTATIN SODIUM 20 MG TABLET PO (10:23)
[2023-07-19] MEDS: PARoxetine 20 MG TABLET PO (10:23)
[2023-07-19] MEDS: HYDROcodone/acetaminophen (*CRX) 5-325 MG TABLET 1 TAB PO ×2 (12:55→19:32)
[2023-07-19 14:00] VITALS: BP 142/61; PULSE 68; RESP 18; TEMP 36.7; O2SAT 94
--- NOTE | 2023-07-19 15:22 | PM.IMPN ---
Progress Note: A&P Assessment and Plan (1) Closed left hip fracture: Qualifiers: Encounter type: initial encounter Qualified Code(s): S72.002A - Fracture of unspecified part of neck of left femur, initial encounter for closed fracture Code(s): S72.002A - Fracture of unspecified part of neck of left femur, initial encounter for closed fracture Status: Deleted (2) PAF (paroxysmal atrial fibrillation): Code(s): I48.0 - Paroxysmal atrial fibrillation Status: Acute (3) GERD (gastroesophageal reflux disease): Code(s): K21.9 - Gastro-esophageal reflux disease without esophagitis Status: Acute (4) Fall: Code(s): W19.XXXA - Unspecified fall, initial encounter Status: Acute Plan 83-year-old female who presented after she lost her balance and fell. No loss of consciousness. On Xarelto landed on her left hip. HCT is normal x-ray left hip showed moderately displaced fracture of left obturator ring extending into left pubic bone. Orthopedic has been consulted non operative management. Pain control with oral pain medication. PT OT to see weight-bearing as tolerated DVT prophylaxis with Xarelto Subjective Date/time seen: 07/19/23 15:22 Interval history: 83-year-old female who presented after she lost her balance and fell. No loss of consciousness. On Xarelto landed on her left hip. HCT is normal x-ray left hip showed moderately displaced fracture of left obturator ring extending into left pubic bone. Orthopedic has been consulted non operative management. Pain control with oral pain medication. PT OT to see weight-bearing as tolerated Review of Systems Review of Systems: All systems reviewed & are unremarkable except as noted in HPI and below Exam Narrative: GENERAL: The patient is well developed, not in acute distress HEENT: Nonicteric sclerae, PERRLA, EOMI. Oropharynx clear. Moist mucous membranes. Conjunctivae appear well perfused. CHEST: Chest wall is nontender. HEART: Regular rate and rhythm without murmur, rubs, or gallops LUNGS: Clear to auscultation bilaterally. no respiratory distress ABDOMEN: Soft, positive bowel sounds, non-tender, no organomegaly. SKIN: No rash, no excessive bruising, petechiae, or purpura. NEUROLOGIC: Cranial nerves II-XII intact, alert and oriented x 3, EXTREMITIES: no edema, cyanosis or clubbing left hip tenderness Objective Data Vital Signs Vital Signs: Vital Signs - 24 hr 07/18/23 19:00 07/18/23 19:01 07/18/23 19:11 Temperature Pulse Rate 88 87 88 Respiratory Rate 15 16 16 Blood Pressure 142/64 H 143/62 H Pulse Oximetry 95 Oxygen Delivery 07/18/23 19:30 07/18/23 19:46 07/18/23 20:00 Temperature Pulse Rate 84 86 90 Respiratory Rate 18 23 H 20 Blood Pressure Pulse Oximetry 97 95 95 Oxygen Delivery 07/18/23 20:01 07/18/23 20:15 07/18/23 20:30 Temperature Pulse Rate 90 86 83 Respiratory Rate 14 16 15 Blood Pressure 148/63 H Pulse Oximetry 96 97 97 Oxygen Delivery 07/18/23 20:45 07/18/23 20:46 07/18/23 21:45 Temperature 97.9 F Pulse Rate 80 81 78 Respiratory Rate 15 21 H 20 Blood Pressure 133/61 146/67 H Pulse Oximetry 97 97 96 Oxygen Delivery 07/19/23 03:08 07/19/23 05:35 Temperature 96.4 F L Pulse Rate 72 Respiratory Rate 20 Blood Pressure 156/69 H Pulse Oximetry 97 Oxygen Delivery Room Air Intake/Output Intake/Output: Intake & Output 07/17/23 07/17/23 07/18/23 07/19/23 00:59 23:59 23:59 23:59 Intake Total 0 Balance 0 Meds/Results Medications: Active Medications Generic Name Dose Route Start Last Admin Trade Name Freq PRN Reason Stop Dose Admin Acetaminophen 500 mg 07/19/23 02:22 07/19/23 03:04 Acetaminophen 500 Mg Tablet PO 500 mg Q4H PRN Administration Pain (Scale Score 4-6) Hydrocodone Bitart/Acetaminophen 1 tab 07/19/23 12:40 07/19/23 12:55 Hydrocodone/Acetaminophen (*Crx) 5-325 Mg Tablet PO 1
[2023-07-19 16:43] VITALS: O2SAT 92
[2023-07-19 20:05] VITALS: BP 146/75; PULSE 89; RESP 20; TEMP 36.1; O2SAT 96
--- NOTE | 2023-07-19 20:37 | PC.NURSE ---
This pt and had numerous questions about medications, concerns about pt's rivastigmine patch, surgery, pain medications. Provided education and suggested speaking with MD about rivastigmine. Requested family bring pt gemtesa up; it was brought up at end of shift. Medication labeled and tubed to pharmacy with home med labels. Night RN made aware. Pt declared not surgical candidate and surgery requested hospitalist to order diet. MD to floor later. Requested PO meds to attempt to treat pt pain, as well as diet order. ok'ed norco5 and said he would place order later as well as heart healthy diet. Pt worked with PT/OT with increased pain medication, crying out. Dilaudid given as per discussion with provider.
--- NOTE | 2023-07-19 20:37 | PHAR ---
PT'S HOME MED GEMTESA 75 MG (VIBEGRON) VERIFIED BY PHARMACY
[2023-07-19] MEDS: RIVAROXABAN 20 MG TABLET PO (20:41)
[2023-07-20 05:35] VITALS: BP 154/78; PULSE 82; RESP 18; TEMP 36.6; O2SAT 96
[2023-07-20 05:52] LABS: Basophils Percent Auto 0.3 % (0.2-1.2); Eosinophils Percent Auto 0.4 % (0-4.4); Hematocrit 37.9 % (37.0-47.0); Hemoglobin 12.1 g/dL (12.0-15.0); Immature Granulocyte Absolute 0.04 K/mm3 (0.00-0.031); Immature Granulocyte Percent A 0.4 % (0-0.5); Lymphocytes Absolute Auto 0.86 K/mm3 (0.9-3.2); Mean Corpuscular HGB Conc 31.9 g/dl (32-36); Mean Corpuscular Hemoglobin 32.4 pg (26-34); Mean Corpuscular Volume 101.6 fl (80-100); Mean Platelet Volume 10.4 fl (7.4-10.4); Monocytes Absolute Auto 0.9 K/mm3 (0.1-0.6); Monocytes Percent Auto 9.3 % (2.6-8.5); Neutrophils Absolute Auto 7.7 K/mm3 (1.3-6.7); Neutrophils Percent Auto 80.6 % (45.5-73.1); Platelet Count Result 229 k/mm3 (150-375); Red Blood Count 3.73 M/mm3 (4.2-5.4); Red Cell Distribution Width 11.7 % (11.5-14.5); White Blood Count 9.5 K/mm3 (4.5-10.0)
[2023-07-20 06:02] LABS: Alanine Aminotransferase 20 U/L (6-35); Alkaline Phosphatase 112 U/L (38-126); Anion Gap 6 mmol/L (8-16); Aspartate Amino Transferase 25 U/L (14-36); Bilirubin,Total 0.6 mg/dL (0.2-1.3); Blood Urea Nitrogen 23 mg/dL (7-17); Calcium 8.9 mg/dL (8.4-10.2); Carbon Dioxide 26 mmol/L (22-30); Chloride 101 mmol/L (98-107); Estimated CRCL calculation 43 ml/min; Estimated Glomerular Filt Rate > 60; Glucose 118 mg/dL (65-110); Sodium 133 mmol/L (137-145)
[2023-07-20] MEDS: HYDROcodone/acetaminophen (*CRX) 5-325 MG TABLET 1 TAB PO ×3 (07:00→21:15)
[2023-07-20] MEDS: PARoxetine 20 MG TABLET PO (08:32)
[2023-07-20] MEDS: NIFEdipine 30 MG TAB.ER.24 60 MG PO (08:32)
[2023-07-20] MEDS: PRAVASTATIN SODIUM 20 MG TABLET PO (08:32)
[2023-07-20] MEDS: RIVASTIGMINE TARTRATE 9.5 MG PATCH 1 PATCH TRANSDERM (08:33)
[2023-07-20 14:00] VITALS: BP 154/62; PULSE 85; RESP 18; TEMP 37.3; O2SAT 97
--- NOTE | 2023-07-20 17:31 | PM.IMPN ---
Progress Note: A&P Assessment and Plan (1) Closed left hip fracture: Qualifiers: Encounter type: initial encounter Qualified Code(s): S72.002A - Fracture of unspecified part of neck of left femur, initial encounter for closed fracture Code(s): S72.002A - Fracture of unspecified part of neck of left femur, initial encounter for closed fracture Status: Deleted (2) PAF (paroxysmal atrial fibrillation): Code(s): I48.0 - Paroxysmal atrial fibrillation Status: Acute (3) GERD (gastroesophageal reflux disease): Code(s): K21.9 - Gastro-esophageal reflux disease without esophagitis Status: Acute (4) Fall: Code(s): W19.XXXA - Unspecified fall, initial encounter Status: Acute Plan 83-year-old female who presented after she lost her balance and fell. No loss of consciousness. On Xarelto landed on her left hip. HCT is normal x-ray left hip showed moderately displaced fracture of left obturator ring extending into left pubic bone. Orthopedic has been consulted non operative management. Pain control with oral pain medication. PT OT to see weight-bearing as tolerated DVT prophylaxis with Xarelto 07/20/23: Placement planning underway Time Spent With Patient Time with patient: 25 - 35 minutes Subjective Date/time seen: 07/20/23 17:31 Interval history: 83-year-old female who presented after she lost her balance and fell. No loss of consciousness. On Xarelto landed on her left hip. HCT is normal x-ray left hip showed moderately displaced fracture of left obturator ring extending into left pubic bone. Orthopedic has been consulted non operative management. Pain control with oral pain medication. PT OT to see weight-bearing as tolerated Review of Systems Review of Systems: Fall pain upon bearing weight on left leg unable to ambulate All systems reviewed & are unremarkable except as noted in HPI and below Constitutional: Constitutional: Denies chills, Denies fever(s), Denies malaise, Denies night sweats and Denies weakness Eyes: Eyes: Denies change in vision ENT: Denies dysphagia, Denies vertigo, Denies dizziness and Denies odynophagia Cardiovascular: Cardiovascular: Denies chest pain, Denies leg edema, Denies radiating jaw, neck or arm pain, Denies palpitations and Denies dyspnea Respiratory: Respiratory: Denies cough and Denies dyspnea Gastrointestinal: Gastrointestinal: Denies abdominal pain, Denies dysphagia, Denies dyspepsia, Denies heartburn, Denies diarrhea, Denies loose stools, Denies nausea, Denies odynophagia and Denies vomiting Genitourinary: Genitourinary: Denies dysuria and Denies flank pain Musculoskeletal: Musculoskeletal: Reports deformity, Reports arthralgias (Left hip) and Reports limited range of motion Integumentary/Breasts: Skin/Breast: Denies rash Neurologic: Denies vertigo, Denies dizziness, Denies focal weakness, Denies Sensory deficit (Neuro) and Denies weakness Psychiatric: Psychiatric: Reports no additional psychiatric complaints and Reports as per HPI Endocrine: Endocrine: Denies cold intolerance, Denies flushing, Denies heat intolerance, Denies polyphagia, Denies polydipsia and Denies palpitations Hematologic/Lymphatic: Hematologic/Lymphatic: Reports no additional hematologic/lymphatic complaints and Reports as per HPI Allergic/Immunologic: Allergic/Immunologic: Reports no additional allergic/immunologic complaints and Reports as per HPI Exam Narrative: GENERAL: The patient is well developed, not in acute distress HEENT: Nonicteric sclerae, PERRLA, EOMI. Oropharynx clear. Moist mucous membranes. Conjunctivae appear well perfused. CHEST: Chest wall is nontender. HEART: Regular rate and rhythm without murmur, rubs, or gallops LUNGS: Clear to auscultation bilaterally. no respiratory distress ABDOMEN: Soft, positive bowel sounds, non-tender, no organomegaly. SKIN: No rash, no excessive bruising, petechiae, or purpura. NEUROLOGIC: Cranial
[2023-07-20] MEDS: RIVAROXABAN 20 MG TABLET PO (21:13)
[2023-07-20 22:00] VITALS: BP 143/76; PULSE 86; RESP 16; TEMP 35.9; O2SAT 96
[2023-07-21] MEDS: HYDROcodone/acetaminophen (*CRX) 5-325 MG TABLET 1 TAB PO ×2 (05:49→12:25)
[2023-07-21 06:00] VITALS: BP 155/69; PULSE 74; RESP 20; TEMP 35.7; O2SAT 96
[2023-07-21] MEDS: NIFEdipine 30 MG TAB.ER.24 60 MG PO (08:56)
[2023-07-21] MEDS: PARoxetine 20 MG TABLET PO (08:56)
[2023-07-21] MEDS: PRAVASTATIN SODIUM 20 MG TABLET PO (08:56)
[2023-07-21 13:01] LABS: SARS-CoV-2 RNA PCR Negative (Negative)
--- NOTE | 2023-07-21 13:03 | PM.PNORT ---
Progress Note: A&P Assessment and Plan (1) Pelvic fracture: Qualifiers: Encounter type: initial encounter Pelvic bone location: pubis Sublocation of pubis: unspecified portion of pubis Fracture type: closed Laterality: left Qualified Code(s): S32.502A - Unspecified fracture of left pubis, initial encounter for closed fracture Code(s): S32.9XXA - Fracture of unspecified parts of lumbosacral spine and pelvis, initial encounter for closed fracture Status: Acute Assessment and Plan: Radiographs of the left hip and pelvis reveal moderately displaced fractures of the left obturator ring, with extension into the left pubic bone. Long discussion with today regarding care place. PT/OT. WBAT. Walker. Fall Precautions. Okay to resume Xarelto. SCDs. Incentive Spirometry. Pain control. Ice. Dispo: SNF for rehab pending medical clearance Follow up scheduled in 6 weeks. (2) Fall: Code(s): W19.XXXA - Unspecified fall, initial encounter Status: Acute (3) PAF (paroxysmal atrial fibrillation): Code(s): I48.0 - Paroxysmal atrial fibrillation Status: Acute (4) History of pulmonary embolism: Code(s): Z86.711 - Personal history of pulmonary embolism Status: Acute Subjective Subjective Date/Time Seen: 07/21/23 13:03 Interval history: Patient doing well. Up in chair. Pain well controlled. at bedside. Exam Const: General: comfortable and no acute distress HENMT: Mouth: Yes moist mucous membranes Eyes: General: appearance normal, both eyes and all related structures Neck: Neck: supple and no JVD Resp: Effort & Inspection: normal respiratory effort Cardio: Rate: regular rate Rhythm: regular rhythm GI: Inspection: non-distended Back/Spine/Pelvis: Pelvis: buttock tenderness on the left and buttock swelling on the left Sacroiliac joints: on the left Sacrum: ecchymosis on the left, swelling on the left and tenderness on the left Neuro: General: gait normal Cognition (Neuro): normal cognition Speech: normal speech Extrem: Left lower extremity: hip/thigh Details: abnormal ROM Details: pain with active ROM Details: with internal rotation and with external rotation and pain with resistance Details: to internal rotation and to external rotation; no tenderness and knee Details: abnormal ROM Details: pain with active ROM and pain with passive ROM Psych: Mental Status: mental status grossly normal Affect: normal affect Objective Data Vital Signs Vital Signs: Vital Signs - 24 hr 07/20/23 14:00 07/20/23 21:15 07/20/23 22:00 Temperature 37.3 C 35.9 C L Pulse Rate 85 86 Respiratory Rate 18 16 Blood Pressure 154/62 H 143/76 H Pulse Oximetry 97 96 Oxygen Delivery Room Air 07/21/23 06:00 07/21/23 08:55 Temperature 35.7 C L Pulse Rate 74 Respiratory Rate 20 Blood Pressure 155/69 H Pulse Oximetry 96 Oxygen Delivery Room Air Intake/Output Intake/Output: Intake & Output 07/18/23 07/19/23 07/20/23 07/21/23 23:59 23:59 23:59 23:59 Intake Total 670 660 560 Output Total 831 399 6123 Balance 120 -47 -2240 Meds/Results Medications: Active Medications Generic Name Dose Route Start Last Admin Trade Name Freq PRN Reason Stop Dose Admin Acetaminophen 500 mg 07/19/23 02:22 07/19/23 03:04 Acetaminophen 500 Mg Tablet PO 500 mg Q4H PRN Administration Pain (Scale Score 4-6) Hydrocodone Bitart/Acetaminophen 1 tab 07/19/23 12:40 07/21/23 12:25 Hydrocodone/Acetaminophen (*Crx) 5-325 Mg Tablet PO 1 tab Q6H PRN Administration Pain Rated 4-6 Hydrocodone Bitart/Acetaminophen 1 tab 07/19/23 15:30 07/20/23 12:57 Hydrocodone/Acetaminophen (*Crx) 5-325 Mg Tablet PO 1 tab Q6H PRN Administration Pain Rated 4-6 Ergocalciferol 50,000 units 08/12/23 09:00 Ergocalciferol 50,000 Units Capsule PO Q30D VERNON Ergocalciferol 50,000 units 07/27/23 09:00 Ergocalcifer
--- NOTE | 2023-07-21 13:56 | PM.DS ---
DS: Admitting Diagnosis Discharge Date 07/21/2023 Admitting Diagnosis Closed left hip fracture DS: Discharge Diagnosis Discharge Diagnosis (1) Closed left hip fracture: Qualifiers: Encounter type: initial encounter Qualified Code(s): S72.002A - Fracture of unspecified part of neck of left femur, initial encounter for closed fracture Code(s): S72.002A - Fracture of unspecified part of neck of left femur, initial encounter for closed fracture Status: Deleted (2) PAF (paroxysmal atrial fibrillation): Code(s): I48.0 - Paroxysmal atrial fibrillation Status: Acute (3) GERD (gastroesophageal reflux disease): Code(s): K21.9 - Gastro-esophageal reflux disease without esophagitis Status: Acute (4) Fall: Code(s): W19.XXXA - Unspecified fall, initial encounter Status: Acute (5) Pelvic fracture: Qualifiers: Encounter type: initial encounter Fracture type: closed Laterality: left Pelvic bone location: pubis Sublocation of pubis: unspecified portion of pubis Qualified Code(s): S32.502A - Unspecified fracture of left pubis, initial encounter for closed fracture Code(s): S32.9XXA - Fracture of unspecified parts of lumbosacral spine and pelvis, initial encounter for closed fracture Status: Acute Plan 83-year-old female who presented after she lost her balance and fell. No loss of consciousness. On Xarelto landed on her left hip. HCT is normal x-ray left hip showed moderately displaced fracture of left obturator ring extending into left pubic bone. Orthopedic has been consulted non operative management. Pain control with oral pain medication. PT OT to see weight-bearing as tolerated DVT prophylaxis with Xarelto 07/20/23: Placement planning underway 07/21/23: Will discharge today to [facility] Per Orthopedic surgery: Radiographs of the left hip and pelvis reveal moderately displaced fractures of the left obturator ring, with extension into the left pubic bone. Long discussion with today regarding care place. PT/OT. WBAT. Walker. Fall Precautions. Okay to resume Xarelto. SCDs. Incentive Spirometry. Pain control. Ice. Dispo: SNF for rehab pending medical clearance Follow up scheduled in 6 weeks.? DS: Summary Hospital Course Reason for hospitalization: Fall Fracture of left obturator ring Hospital Course: This is an 83-year-old female with past medical history significant for anxiety, the ventrum boluses, GERD, pulmonary emboli, transitory ischemic attack.? Patient presented to the emergency room today after sustaining a ground level mechanical fall when she tripped at her house falling over unable to bear weight on her left leg.? Patient denies any loss of consciousness.? Patient has been her usual state of health.? In emergency room patient was found to have a hip fracture.? Patient has been admitted for further evaluation management and treatment. Orthopedic surgery plan: Radiographs of the left hip and pelvis reveal moderately displaced fractures of the left obturator ring, with extension into the left pubic bone. Long discussion with today regarding care place. PT/OT. WBAT. Walker. Fall Precautions. Okay to resume Xarelto. SCDs. Incentive Spirometry. Pain control. Ice. Dispo: SNF for rehab pending medical clearance Follow up scheduled in 6 weeks. Status at Discharge Overall status at discharge: patient is progressing back to baseline Time Spent with Patient Time attestation: Total time spent providing and/or coordinating discharge services: Exam Narrative: GENERAL: The patient is well developed, not in acute distress HEENT: Nonicteric sclerae, PERRLA, EOMI. Oropharynx clear. Moist mucous membranes. Conjunctivae appear well perfused. CHEST: Chest wall is nontender. HEART: Regular rate and rhythm without murmur, rubs, or gallops LUNGS: Clear to auscultation bilaterally. no respiratory distress ABDOMEN: Soft, positive anjum
[2023-07-21 14:00] VITALS: BP 123/63; PULSE 90; RESP 16; TEMP 36.4; O2SAT 96
--- NOTE | 2023-07-21 15:50 | PC.NURSE ---
Patient has not voided since benjamin removed at 1215. [place] called and notified.
== END 2023-07-21 15:50 | DRG 536 ==
LOC: ANHED 17:51 → ANH3MEDSUR 20:32
PROVIDERS: Internal Medicine; Admitting Provider Internal Medicine; Emergency Provider Student in an Organized Health Care Education/Training Program; PCP Family Medicine; Visit Provider Internal Medicine
DX: S32.592A Other specified fracture of left pubis, initial encounter for closed fracture (principal); Z11.52 Encounter for screening for COVID-19; K21.9 Gastro-esophageal reflux disease without esophagitis; I48.0 Paroxysmal atrial fibrillation; F41.9 Anxiety disorder, unspecified; W01.0XXA Fall on same level from slipping, tripping and stumbling without subsequent striking against object, initial encounter; Z96.659 Presence of unspecified artificial knee joint; Z86.718 Personal history of other venous thrombosis and embolism; Z86.711 Personal history of pulmonary embolism; Z86.73 Personal history of transient ischemic attack (TIA), and cerebral infarction without residual deficits
CPT/HCPCS: 36415; 70450; 73502; 80048; 80053; 83735; 85025; 85610; 85730; 87635; 96374; 97161; 97165; 97530; 97535; 99285; A9270; J1170; J2270

== ENCOUNTER 2024-02-16 11:28 | Outpatient (CLI) | payer MEDICARE, SELFPAY ==
--- NOTE | ~2024-02-16 | MM_ITS ---
EXAMINATION: MM screening [facility] BI w nhan HISTORY: Screening TECHNIQUE: Craniocaudal and mediolateral oblique 3-D tomosynthesis images were obtained and synthetic 2-D images were generated. CAD analysis was submitted and interpreted. COMPARISON: Comparison to multiple prior studies sequentially, with oldest reviewed study dated 10/06. BREAST PARENCHYMAL COMPOSITION: Not dense: There are scattered areas of fibroglandular density. FINDINGS: There is no evidence of suspicious mass, calcification, or architectural distortion to sugg est malignancy in either breast. There has been no suspicious interval change. IMPRESSION: 1. No mammographic evidence of malignancy. 2. Recommend routine screening mammography in one year. BI-RADS Category 1: Negative Reviewed, dictated and finalized at location B.
== END 2024-02-16 11:29 ==
LOC: MICIMG 11:29
PROVIDERS: PCP Obstetrics & Gynecology Gynecology; Visit Provider Obstetrics & Gynecology Gynecology
DX: Z12.31 Encounter for screening mammogram for malignant neoplasm of breast (principal)
CPT/HCPCS: 77063; 77067

== ENCOUNTER 2025-05-27 11:27 | Outpatient (CLI) | payer MEDICARE, SELFPAY ==
--- NOTE | ~2025-05-27 | MM_ITS ---
EXAMINATION: MM screening k[facility] BI w nhan HISTORY: Screening TECHNIQUE: Craniocaudal and mediolateral oblique 3-D tomosynthesis images were obtained and synthetic 2-D images were generated. CAD analysis was submitted and interpreted. COMPARISON: 11/09/2022 BREAST PARENCHYMAL COMPOSITION: There are scattered areas of fibroglandular density. FINDINGS: There is no evidence of suspicious mass, calcification, or architectural distortion to suggest malignancy. There has been no suspicious interval change. IMPRESSION: 1. No mammographic evidence of malignancy. Recommend routine screening mammography in one year. BI-RADS Category 2: Benign finding(s) Reviewed, dictated and finalized at location Q. IMPRESSION: 1. No mammographic evidence of malignancy. Recommend routine screening mammogra phy in one year. BI-RADS Category 2: Benign finding(s)
== END 2025-05-27 11:28 | disposition home or self-care (01) ==
LOC: MICIMG 11:28
PROVIDERS: PCP Obstetrics & Gynecology Gynecology; Visit Provider Obstetrics & Gynecology Gynecology
DX: Z12.31 Encounter for screening mammogram for malignant neoplasm of breast (principal)
CPT/HCPCS: 77063; 77067